=== PATIENT | male | born 1960 | race Caucasian/White ===

== ENCOUNTER 2022-03-15 06:39 | Outpatient (CLI) | payer SELFPAY ==
--- NOTE | 2022-03-15 | ECG_ITS ---
[facility] Test Date: 2022-03-15 Pat Name: Barrett Romo Department: Room: Gender: Male Clinical Advisor: : 1960 Requested By: Ethan Bahena Order Number: [id number] Bill MD: Ann Arnett M.D. Interpretive Statements NAME OF STUDY: LEXISCAN SESTAMIBI STRESS TEST INDICATION: Bravo, PROCEDURE: At the baseline, the EKG revealed normal sinus rhythm. The baseline heart was 62 bpm with a blood pressue of 147/88 mm of Hg Lexiscan was infused over a period of 20 seconds. A total of 0.4 milligrams of Lexiscan was infused. The stress phase was continued for a total of 5 minutes. Heart rate at the end of the stress phase was 72 bpm with a blood pressure 157/98 mm of Hg. The EKG at the peak infusion revealed no significant changes. Sestamibi was injected 20 seconds after the Lexiscan infusion. Heart rate at the end of the recovery phase was 79 bpm with a blood pressure of 154/96 mm of Hg. CONCLUSION: 1. No significant EKG changes with the LexiScan infusion 2. No LexiScan induced chest pain or cardiac arrhythmia 3. Normal blood pressure and heart rate response 4. Sestamibi/sestamibi perfusion scan pending; see separate report. Electronically Signed On 03-15-2022 16:31:02 CDT by Ann Arnett M.D. [email or web address]
[2022-03-15 07:03] VITALS: BMI 39.8
--- NOTE | 2022-03-15 08:16 | NMCV_ITS ---
NM marc perf SPECT r/s* [id number] Barrett Romo Age: 61 Gender: M : 1960 Exam Date: 03/15/2022 08:27 Ordering Phys: Ethan Bahena Technologist: TATY Garcia Exam Location: [facility] Indications: DYSPNEA ON EXERTION STRESS TEST Please see separate stress test report in [facility] for full findings IMAGE PROTOCOL Rest/Stress 1 Lexiscan Day Radiopharmaceutical Dose (mCi) Administration Site Administered by Rest: Tc-99m IV TATY Rodriguez Sestamibi Stress:Tc-99m 32.7 IV TATY Rodriguez Sestamibi Rest: 15-Mar-2022 60 Discovery 630 Stress: 15-Mar-2022 30 Discovery 630 0.4mg Lexiscan. Images obtained in supine and prone position. SPECT RESULTS Technical Quality: Excellent Raw Data Analysis: Normal Image Corrections: No attenuation or motion correction applied Summed Stress Score: 0 Summed Rest Score: 0 Summed Difference Score: 0 PERFUSION FINDINGS Fairly uniform myocardial tracer uptake. No significant perfusion abnormalities FUNCTIONAL RESULTS (calculated via Gated SPECT) Stress Image LV EF (%): 65 Stress EDV (mL):131 TID: 1.03 Stress ESV (mL):46 FUNCTIONAL FINDINGS: Segmental wall motion analysis revealing no gross wall motion abnormalities IMPRESSIONS 1. Unremarkable Myocardial perfusion imaging. 2. Normal LV ejection fraction of 65%. 3. LV wall motion analysis revealing no gross wall motion abnormalities. 4. Normal LV volume Low probability for coronary ischemia, based on the above findings Dr Ann Arnett MD [facility] (Electronically Signed) Final Date: 15 March 2022 12:57 S
[2022-03-15] MEDS: regadenoson 0.4 Mg/5 ml Syringe IVP (08:58)
[2022-03-15] MEDS: ondansetron 2 mg/ML SDV 2 mL 4 MG IVP (08:58)
[2022-03-15 09:15] VITALS: BP 154/96; PULSE 67
== END 2022-03-15 06:40 | disposition home or self-care (01) ==
LOC: CDL 06:43
PROVIDERS: PCP Nurse Practitioner Family; Visit Provider Family Medicine
DX: R06.09 Other forms of dyspnea (principal)
CPT/HCPCS: 78452; 93017; A9500; J2405; J2785